=== PATIENT | male | born 1990 ===

== ENCOUNTER 2020-05-19 11:03 | Emergency (ER) | payer BC ==
[~2020-05-19] VITALS: Ht 165.1 cm; Wt 73.0 kg
[2020-05-19 11:22] VITALS: BP 115/69
--- NOTE | 2020-05-19 11:25 | NUR ---
PT BIB EMS FOR RESPIRATORY COMPLAINTS, SOB AND COUGH. PT POSITIVE FOR COVID. CHEST TIGHTNESS PRESENT. PT ALSO ANXIOUS. VSS. 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 SPO2 99% RA. NOT IN DISTRESS. IV ESTABLISHED. IVF
[2020-05-19] MEDS ORDERED: PLEASE ENTER HEIGHT AND WEIGHT MC SCH (11:30)
[2020-05-19] MEDS ORDERED: LORazepam 2 MG/ML, 1ML IVPush ONE (11:30)
[2020-05-19] MEDS ORDERED: PLEASE ENTER ALLERGIES MC SCH (11:30)
[2020-05-19] MEDS ORDERED: SODIUM CHLORIDE 0.9% 1,000ML IVBOLUS ONE ×2 (11:30→12:30)
[2020-05-19 11:33] LABS: BASOPHILS % (AUTO) 1 % (0-1); EOSINOPHILS % (AUTO) 2 % (1-7); LYMPHOCYTES % (AUTO) 14 % (22-44); MEAN PLATELET VOLUME 7.7 fL (7.4-10.4); MONOCYTES % (AUTO) 10 % (2-9); NEUTROPHILS % (AUTO) 73 % (42-75); PLATELET COUNT 297 x10^3/uL (130-400); RED BLOOD COUNT 4.94 x10^6/uL (4.38-5.82); RED CELL DISTRIBUTION WIDTH 13.1 % (9.4-14.8)
[2020-05-19 11:34] LABS: MD NO
[2020-05-19 11:42] LABS: ALANINE AMINOTRANSFERASE 18 U/L (12-78); ALBUMIN 3.9 g/dL (3.4-5.0); ANION GAP 10 mmol/L (5-15); CALCIUM 9.1 mg/dL (8.5-10.1); CHLORIDE 111 mmol/L (98-107); CREATININE 1.13 mg/dL (0.7-1.3)
[2020-05-19 11:45] LABS: ALKALINE PHOSPHATASE 60 U/L (45-117); BILIRUBIN,TOTAL 0.6 mg/dL (0.2-1.0); TOTAL PROTEIN 7.9 g/dL (6.4-8.2)
--- NOTE | 2020-05-19 12:30 | NUR ---
PT RESTING, NOT IN RESP DISTRESS. SLIGHT COUGH. VSS
--- NOTE | 2020-05-19 13:30 | NUR ---
PLAN TO DC SOON. PT RESTING. NO NEEDS AT THIS TIME
--- NOTE | 2020-05-19 14:05 | NUR ---
Patient/Caregiver given discharge instructions and they have confirmed that they understand the instructions. Patient ambulatory with steady gait.
== END 2020-05-19 14:17 ==
LOC: EDSEX 11:03 → ED 14:10
DX: R19.7 Diarrhea, unspecified (principal); B34.9 Viral infection, unspecified; R07.89 Other chest pain
CPT/HCPCS: 36415; 71045; 80053; 85025; 93005; 96360; 96361; 99285; J7030